=== PATIENT | female | born 2000 | race Caucasian/White ===

== ENCOUNTER 2023-10-05 03:26 | Emergency (ER) | payer BC, SELFPAY ==
--- NOTE | 2023-10-05 03:37 | HMH.EDGENADL ---
Discharge Plan Disposition Patient Disposition: Home, Self-Care Referrals Follow up/Referrals: Provider,Referral, MD [Primary Care Provider] - See instructions Activity Restrictions/Add. Instructions Additional Instructions/Restrictions: Please follow-up with your primary care provider. Please return to the emergency department if you develop any new or worsening symptoms or become concerned for your health. Clinical Impressions Clinical Impression: Syncope and collapse Instructions Patient Instructions: DI for Syncope in Adults (Fainting), DI for Syncope in Children (Fainting) Discharge ED Provider: Eduar Layne General Adult HPI General Chief complaint: Syncope Stated complaint: Passing out Time Seen by Provider: 10/05/23 03:30 History of Present Illness HPI narrative: 23-year-old female with reported history of POTS, anxiety presents with syncopal episode. She reports that she has been dealing with passing out since last May. The episodes happen primarily at work but sometimes happen away from work. She was at a friend's house tonight when she was noted to pass out repeatedly. She had been drinking prior. Per friend, there was no seizure-like activity. She had a palpable pulse during the episode but she was completely unresponsive. She did not lose bowel or bladder control. No tongue biting. No shaking. EMS were called but patient elected to come POV. She reports chest pain, dizziness, shortness of breath. She reports some left-sided numbness which sometimes happens when she has these episodes. She reports that she has been seen by at least 7 different doctors and has had extensive evaluation in the past including blood work, CT scans of the head chest, prior teletypesetter monitor, etc. etc. She reports symptoms are similar to prior episodes. Related Data Allergies Allergy/AdvReac Type Severity Reaction Status Date / Time amoxicillin Allergy Verified 10/05/23 04:21 [email or web address] [From Omnicef] Allergy Verified 10/05/23 04:21 [facility] Disclaimer: The information contained in this section may have been updated after the patient was seen, as this information can be updated by other users. Social History Smoking Status: Current every day smoker alcohol intake: current current occupational status: employed Travel in the last 8 weeks: None ROS Obtained: Yes All systems reviewed & no additional complaints except as documented Physical Exam General General appearance: alert and anxious Head Head exam: atraumatic and normocephalic Eye Eye exam: Present normal appearance, PERRL and EOMI ENT ENT exam: Present normal oropharynx and normal external ear exam Neck Neck exam: Present normal inspection and full ROM Chest Chest inspection: Present normal inspection, symmetric chest wall rise and tenderness (Left-sided) Respiratory Respiratory exam: Present normal lung sounds bilaterally; Absent respiratory distress Cardiovascular Cardiovascular exam: Present normal rhythm and tachycardia Abdominal Exam Abdominal exam: Present soft; Absent distention, tenderness or guarding Extremities Exam Extremities exam: Present normal inspection; Absent edema or joint swelling Back Exam Back exam: Present normal inspection; Absent tenderness Neurological Exam Neurological exam: Present alert and oriented X3; Absent motor sensory deficit Psychiatric Psychiatric exam: Present normal affect and anxious Skin Skin exam: Present warm, dry and normal color Lymphatic Lymphatic Findings: no adenopathy Medical Decision Making Medical Records Medical records reviewed: Yes I reviewed the patient's medical records. David Inquiry Pt receiving controlled substance: No David was queried for this patient: No Vital Signs: 10/05/23 04:06 Temperature 98.3 F Temperature Source Oral Pulse Rate [Apical] 97 H Respiratory Rate 12 Blood Pressure [Right Arm] 112/74 Blood Pressure Mean [Right Arm] 86 Blood Pressure Source [Right Arm] Automatic Cuff Blood Pressure Position [Right Arm] Sitting 02 Sat by Pulse Oximetry 98 Oxygen Delivery Method Room Air Lab Data Lab results reviewed: Yes I reviewed the patient's lab results. Lab Results 10/05/23 04:01: WBC 5.6, RBC 5.10, Hgb 15.2, Hct 44.3, MCV 86.8, MCH 29.8, MCHC 34.4, RDW 12.8, Plt Count 266, MPV 7.5, Neut % (Auto) 58.5, Lymph % (Auto) 34.5, [place] % (Auto) 4.3, Eos % (Auto) 1.3, Baso % (Auto) 1.4, Neut # (Auto) 3.3, Lymph # (Auto) 1.9, [place] # (Auto) 0.2, Eos # (Auto) 0.1, Baso # (Auto) 0.1, D-Dimer 0.57 H, Sodium 145, Potassium 4.0, Chloride 106, Carbon Dioxide 26, Anion Gap 17.0 H, BUN 4 L, Creatinine 0.60, Estimated Creat Clear 122, Estimated GFR 126, Est GFR ( Amer) 153, Glucose 82, Calcium 9.4, Total Bilirubin 0.4, AST 33, ALT 24, Alkaline Phosphatase 64, Troponin I < 0.01, Total Protein 8.4 H, Albumin 5.0, Globulin 3.4 H, Albumin/Globulin Ratio 1.5, TSH 2.18, Thyroxine (T4) 10.1, Serum HCG, Qual Negative 10/05/23 04:01 10/05/23 04:01 Orders (Tests/Meds): ED MEDICATIONS Generic Name Dose Route Start Last Admin Trade Name Freq PRN Reason Stop Dose Admin Lactated Ringer's 1,000 mls @ 999 mls/hr 10/05/23 04:00 10/05/23 04:11 Lactated Ringer's 1000 Ml Bag IV 10/05/23 05:00 999 mls/hr .Q1H1M JESUS Administration Discontinued Medications Generic Name Dose Route Start Last Admin Trade Name Freq PRN Reason Stop Dose Admin Acetaminophen 1,000 mg 10/05/23 03:54 10/05/23 04:10 Acetaminophen 500mg Tab PO 10/05/23 03:55 Not Given ONCE ONE ORDERS Category Date Time Status CBC w/Auto Diff [Complete Blood Count Auto Diff] Stat Lab 10/05/23 04:01 Completed CMP [Comprehensive Metabolic Panel] Stat Lab 10/05/23 04:01 Completed D-Dimer Stat Lab 10/05/23 04:01 Completed HCG Qualitative, Serum Stat Lab 10/05/23 04:01 Completed T4 (Thyroxine) Stat Lab 10/05/23 04:01 Completed TSH [Thyroid Stimulating Hormone] Stat Lab 10/05/23 04:01 Completed Troponin I Q3H Lab 10/05/23 04:01 Completed Troponin I Q3H Lab 10/05/23 07:00 Ordered Medical Decision Narrative: 23-year-old female with reported history of anxiety and POTS as well as chronic syncope presents with syncopal episode at a friend's house after drinking tonight.. History was obtained via conversation with patient, friend. On arrival, patient is afebrile, mildly tachycardic, normotensive, anxious appearing but alert and oriented x 4, GCS 15, moving all extremities spontaneously. Full physical exam performed and significant for left-sided chest wall tenderness, clear lungs bilaterally, no significant abdominal tenderness, no focal neurologic deficits. Differential includes but is not limited to vasovagal syncope, cardiogenic syncope, POTS, seizure, PE, pneumothorax, anxiety, intoxication, withdrawal. Patient was given 1 L fluid bolus for symptomatic management and correction of underlying abnormalities. Workup initiated including CBC CMP D-dimer troponin test chest x-ray EKG. Patient placed on teletypesetter monitor. While I was in the room evaluating the patient she reported sudden onset of left-sided chest pain. She had a slow increase in her heart rate from approximately 110 - 140 and then it slowly declined back to normal. It continued to be sinus the entire time on my interpretation of teletypesetter monitor. On re-evaluation, patient [remains afebrile, HD stable.] Patient is anxious and crying and reports a wide variety of stressors that have been ongoing lately. On mitral history of teletypesetter monitor, patient has remained in normal sinus rhythm with appropriate rates. Laboratory workup independently interpreted by me and significant for normal thyroid studies, negative initial troponin, negative D-dimer by years criteria, normal electrolytes and renal function, negative test. Chest x-ray was ordered but declined by patient. EKG independently interpreted by me and significant for sinus rhythm, rate of 96, no concerning ST or T wave changes, no evidence of arrhythmia. CT PE was considered, but deemed unnecessary due to negative D-dimer.. Given patient history, exam and workup, patient's presentation is most likely recurrent syncope, potentially secondary to POTS or psychiatric comorbidities and recent psychosocial stressors. I'm not concerned for emergent pathology at this time. Patient discharged in stable condition with instructions to follow-up with PCP for continued workup. Procedures Risk/Benefits of Procedure(s) Were Explained: Yes Critical Care Critical Care Time Critical Care Time: No
--- NOTE | 2023-10-05 03:38 | ECG_ITS ---
APPROVED REPORT Exam: Resting ECG HR:96 bpm ECG Measurements Heart Rate 96 AXES NE 140 P 70 QRSd 101 QRS 75 QT 333 T 68 QTc 387 Conclusion SINUS RHYTHM WITH SINUS ARRHYTHMIA NORMAL ECG UNCONFIRMED REPORT Electronically signed by : Germán Owen MD 10/06/2023 21:47:30
[2023-10-05 04:06] VITALS: BP 112/74; PULSE 97; RESP 12; TEMP 36.8; O2SAT 98; BMI 16.9
[2023-10-05 04:11] LABS: Basophils # 0.1 K/mm3 (0-0.2); Basophils % 1.4 % (0.1-2.0); Eosinophils # 0.1 K/mm3 (0.0-0.4); Eosinophils % 1.3 % (0.1-12.0); Hematocrit 44.3 % (37.0-47.0); Hemoglobin 15.2 g/dL (12.2-16.2); Lymphocytes # 1.9 K/mm3 (0.7-4.5); Lymphocytes % 34.5 % (10-50); Mean Corpuscular HGB Conc 34.4 g/dL (31.8-35.4); Mean Corpuscular Hemoglobin 29.8 pg (27.0-31.2); Mean Corpuscular Volume 86.8 fl (81-99); Mean Platelet Volume 7.5 fl (7.4-10.4); Monocytes # 0.2 K/mm3 (0.1-1.0); Monocytes % 4.3 % (1.7-9.3); Neutrophils # 3.3 K/mm3 (1.8-7.8); Neutrophils % 58.5 % (37.0-80.0); Platelet Count 266 K/mm3 (142-424); Red Cell Distribution Width 12.8 % (11.5-17.5); White Blood Count 5.6 K/mm3 (4.8-10.8)
[2023-10-05] MEDS: LACTATED RINGERS 1000ML 1,000 ML 999 ML IV (04:11)
[2023-10-05 04:16] LABS: Alanine Aminotransferase 24 U/L (12-78); Albumin/Globulin Ratio 1.5 (1.1-1.8); Alkaline Phosphatase 64 U/L (38-126); Aspartate Amino Transferase 33 U/L (14-36); Bilirubin,Total 0.4 mg/dl (0.2-1.3); Blood Urea Nitrogen 4 mg/dl (7-17); Calcium 9.4 mg/dl (8.4-10.2); Carbon Dioxide 26 mmol/L (22.0-30.0); Chloride 106 mmol/L (98-107); Creatinine Clearance Estimated 122 mL/min (50-200); Estimated Glomerular Filt Rate 126 ml/min (>60); GFR (African American) 153 ML/MIN (>60); Globulin 3.4 g/dL (1.3-3.2); Glucose 82 mg/dl (74-100); Sodium 145 mmol/L (136-145); Total Protein,Serum 8.4 g/dl (6.3-8.2)
[2023-10-05 04:21] LABS: D-Dimer 0.57 ug/mL (0.0-0.5)
[2023-10-05 04:30] LABS: HCG Qualitative, Serum Negative (Negative)
[2023-10-05 04:33] LABS: Troponin I < 0.01 ng/ml (0.00-0.034)
[2023-10-05 04:34] LABS: T4 (Thyroxine) 10.1 ug/dl (5.53-11.0)
[2023-10-05 04:48] LABS: Thyroid Stimulating Hormone 2.18 uIU/mL (0.465-4.68)
[2023-10-05 04:57] VITALS: BP 103/74; PULSE 96; RESP 16; TEMP 36.8; O2SAT 100
== END 2023-10-05 04:58 | disposition home or self-care (01) ==
PROVIDERS: Emergency Provider Emergency Medicine
DX: R55 Syncope and collapse (principal); R07.9 Chest pain, unspecified; R42 Dizziness and giddiness; R06.02 Shortness of breath; G90.A Postural orthostatic tachycardia syndrome [POTS]; F41.9 Anxiety disorder, unspecified; F17.200 Nicotine dependence, unspecified, uncomplicated
CPT/HCPCS: 80053; 84436; 84443; 84484; 84703; 85025; 85378; 93005; 96360; 99285